=== PATIENT | male | born 1965 | race Caucasian/White ===

== ENCOUNTER 2024-07-17 10:07 | Outpatient (CLI) | payer OTHER, SELFPAY ==
--- NOTE | 2024-07-17 10:13 | US_ITS ---
WS: [id number] TESTICULAR ULTRASOUND HISTORY: OTHER SPECIFIED DISORDER OF MALE GENITAL ORGAN COMPARISON: None available. TECHNIQUE: Real-time and color Doppler imaging or utilized to perform a testicular ultrasound. Right testicle: 3.1 cm x 4.7 cm x 2.2 cm. Normal size testicle. There is diffuse heterogeneity throughout the testicle. There is normal vascula rity. Variable echogenicity in portions of the testicle. Along the posterior testicle there is an are a of decreased echogenicity which could potentially be an infiltrating neoplasm. Normal color Doppler is present throughout. Systolic and diastolic velocities are both present. No significant hydrocele. Right epididymis: Multiple spermatoceles with low-level echoes. Large spermatocele measures 2.7 x 1.8 cm. Left testicle: 3.3 cm x 3.3 cm x 2.5 cm. Normal size testicle with variable echogenicity throughout. Normal vascularity. There is a similar ar ea of decreased echogenicity in the posterior testicle as compared to the RIGHT. Normal color Doppler is present throughout. Systolic and diastolic velocities are both present. Small moderate size complex LEFT hydrocele. Left epididymis: Normal epididymis with no increased vascularity. US/US scrotum [id number] IMPRESSION: 1. Large lobulated RIGHT spermatocele. 2. Moderate complex LEFT hydrocele. 3. Testicles are markedly heterogeneous with areas of decreased echogenicity. This is a symmetric finding therefore this is probably postinflammatory. Consid er short-term follow-up in 3 to 4 months to ensure there is no underlying neopl asm or tumor. 4. No testicular torsion.
== END 2024-07-17 10:08 | disposition home or self-care (01) ==
LOC: RAD 10:11
PROVIDERS: Visit Provider Nurse Practitioner Occupational Health
DX: N43.2 Other hydrocele (principal); Q55.29 Other congenital malformations of testis and scrotum
CPT/HCPCS: 76870

== ENCOUNTER 2024-11-28 18:10 | Emergency (ER) | payer OTHER, SELFPAY ==
[2024-11-28 18:13] VITALS: PULSE 97; RESP 18; TEMP 36.8; O2SAT 97; BMI 25.0
--- NOTE | 2024-11-28 18:20 | ECG_ITS ---
[facility] Date: 2024-11-28 Pat Name: Chadwick Frank Department: Room: Gender: Male Boot Turner: : 1965 Requested By: Zully Lang Order Number: [id number] Craven MD: Shivani Soares M.D. Measurements Intervals [place] Rate: 93 P: 60 WI: 152 QRS: 69 QRSD: 84 T: 51 QT: 335 QTc: 417 Interpretive Statements SINUS RHYTHM No previous ECG available for comparison Electronically Signed On 11-29-2024 18:18:25 HANGER by Shivani Soares M.D. [email or web address]
[2024-11-28 18:25] LABS: Glucose Point of Care 115 mg/dL (70-110)
[2024-11-28 20:10] VITALS: BP 153/86; PULSE 79; RESP 16; O2SAT 98
--- NOTE | 2024-11-28 20:19 | XRR_ITS ---
PROCEDURE INFORMATION: Exam: XR Chest Exam date and time: 11/28/2024 8:49 PM Age: 59 years old Clinical indication: Cough and shortness of breath; Additional info: Cough/syncope TECHNIQUE: Imaging protocol: Radiologic exam of the chest. Views: 1 view. COMPARISON: No relevant prior studies available. FINDINGS: Lungs: Unremarkable. No consolidation. Pleural spaces: Unremarkable. No pleural effusion. No pneumothorax. Heart/Mediastinum: Unremarkable. No cardiomegaly. Bones/joints: Unremarkable. XR/XR chest 1V portable [id number] IMPRESSION: No acute findings.
--- NOTE | 2024-11-28 20:19 | CTR_ITS ---
PROCEDURE INFORMATION: Exam: CT Head Without Contrast Exam date and time: 11/28/2024 8:41 PM Age: 59 years old Clinical indication: Injury or trauma; Fall; Blunt trauma (contusions or hematomas); Additional info: Sycope/ head injury TECHNIQUE: Imaging protocol: Computed tomography of the head without contrast. Radiation optimization: All CT scans at this facility use at least one of these dose optimization techniques: automated exposure control; mA and/or kV adjustment per patient size (includes targeted exams where dose is matched to clinical indication); or iterative reconstruction. COMPARISON: No relevant prior studies available. RADIATION DOSE METRICS: Total DLP (mGy-cm): 1115.48 FINDINGS: Brain: Normal. No hemorrhage. Unremarkable white matter. No mass effect. Cerebral ventricles: No ventriculomegaly. Paranasal sinuses: Visualized sinuses are unremarkable. No fluid levels. Mastoid air cells: Visualized mastoid air cells are well aerated. Bones: Unremarkable. No acute fracture. Soft tissues: Unremarkable. CT/CT head wo con* [id number] IMPRESSION: No acute intracranial abnormality.
--- NOTE | 2024-11-28 20:31 | W.ED.SYNCOPE ---
HPI - Syncope General: Chief Complaint: Syncope Stated Complaint: passed out fall hit head Time Seen by Provider: 11/28/24 20:12 History of Present Illness: 59-year-old male presents following a syncope event. 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 Family reports that he hit his forehead. He denies any pain at this time. He denies any chest pain prior to the syncopal event. He does report that he has had some congestion and cough and just generally not feeling well for the last couple days. Patient denies any pain or symptoms at this time. Associated symptoms: Reports fever(s); Deny abdominal pain, chest pain or nausea Related Data Allergies Allergy/AdvReac Type Severity Reaction Status Date / Time honey Allergy ALGY-Anaphy Verified 11/28/24 18:19 laxis Penicillins Allergy ALGY-Anaphy Verified 11/28/24 18:19 laxis Review of Systems Const: Reports: fever(s), fatigue and malaise Card: Reports: syncope; Denies: chest pain or palpitations Resp: Reports: non-productive cough GI: Denies: abdominal pain, nausea or vomiting : Denies: flank pain or difficulty urinating Musc: Denies: neck pain or back pain Skin/Breast: Denies: rash Physical Exam Const: COMMON NORMALS: no acute distress, average body habitus, patient oriented x3, healthy appearing and alert HENMT: COMMON NORMALS: normocephalic and atraumatic HEAD & SCALP: normal to inspection, normocephalic and atraumatic Neck/C-Spine: COMMON NORMALS: full ROM and supple CERVICAL SPINE: Yes cervical ROM normal, No pain with cervical ROM and No Cervical spine tenderness Resp: COMMON NORMALS: normal respiratory effort, No use of accessory muscles and clear to auscultation bilaterally AUSCULTATION: clear to auscultation bilaterally Cardio: COMMON NORMALS: regular rate and regular rhythm RATE: regular rate RHYTHM: regular rhythm Neuro: COMMON NORMALS: patient oriented x3, CN's II-XII intact bilaterally, moves all extremities, no focal motor deficits and no sensory deficits noted SENSORIUM/ORIENTATION: Yes alert Psych: COMMON NORMALS: mental status grossly normal, Normal thought process present, cooperative, normal affect and speech normal SPEECH: Yes normal speech THOUGHT PROCESS: Normal thought process present Skin: COMMON NORMALS: no rashes or lesions noted and turgor normal GENERAL SKIN EXAM: no rashes or lesions noted and turgor normal Course Vital Signs: Vital signs: Vital Signs Temperature 98.2 F 11/28/24 18:13 Pulse Rate 78 11/28/24 21:00 Respiratory Rate 16 11/28/24 21:00 Blood Pressure 101/46 11/28/24 21:00 Pulse Oximetry 95 11/28/24 21:00 Oxygen Delivery Me thod Room Air 11/28/24 21:00 MDM - Syncope Medical Decision Making Patient diagnostic studies were ordered reviewed and interpreted by me. Patient's labs show no acute findings. Patient is EKG shows sinus rhythm with a ventricular rate 93, [place] [address] change elevation noted. Patient's x-rays were negative along with a negative head CT. Patient's symptoms were consistent with likely vasovagal syncope. Patient also likely has a viral syndrome. Patient's care was turned over to Dr. Aragon at the end of my shift pending respiratory panel. I anticipate discharge home. Lab Data 11/28/24 20:32 11/28/24 20:32 Radiology Impressions Chest X-Ray 11/28/24 20:19 IMPRESSION: No acute findings. Head CT 11/28/24 20:19 IMPRESSION: No acute intracranial abnormality. Laboratory Results WBC 11.30 10^3/uL (3.29-11.43) 11/28/24 20:32 RBC 4.86 10^6/uL (3.85-5.65) 11/28/24 20:32 Hgb 15.20 g/dL (11.27-16.99) 11/28/24 20:32 Hct 46.1 % (37-53) 11/28/24 20:32 MCV 94.9 fl (82-101) 11/28/24 20:32 MCH 31.3 pg (27-33) 11/28/24 20:32 MCHC 33.0 g/dL (30-55) 11/28/24 20:32 RDW 12.4 % (12.1-15.1) 11/28/24 20:32 Plt Count 143 10^3/cmm (157-399) L 11/28/24 20:32 MPV 10.5 fL (7.4-10.4) H 11/28/24 20:32 Neut % (Auto) 79.4 % 11/28/24 20:32 Lymph % (Auto) 14.0 % 11/28/24 20:32 Catron % (Auto) 6.0 % 11/28/24 20:32 Eos % (Auto) 0.0 % 11/28/24 20:32 Baso % (Auto) 0.2 % 11/28/24 20:32 Neut # (Auto) 8.98 10^3/uL (1.8-7.7) H 11/28/24 20:32 Lymph # (Auto) 1.6 10^3/uL (0.8-4.8) 11/28/24 20:32 Catron # (Auto) 0.7 10^3/uL (0.2-0.9) 11/28/24 20:32 Eos # (Auto) 0.0 10^3/uL (0.0-0.8) 11/28/24 20: Baso # (Auto) 0.0 10^3/uL (0.0-0.1) 11/28/24 20:32 Nucleated RBC % (auto) 0 % 11/28/24: Nucleated RBCs # 0.0 /100WBC 11/28/24 20:32 Sodium 134 mmol/L (136-145) L 11/28/24 20:32 Potassium 3.9 mmol/L (3.5-5.1) 11/28/24 20:32 Chloride 97 mmol/L (98-107) L 11/28/24 20:32 Carbon Dioxide 26 mmol/L (22-29) 11/28/24 20:32 Anion Gap 14.9 (5-19) 11/28/24 20:32 BUN 17 mg/dL (8-23) 11/28/24 20:32 Creatinine 1.1 mg/dL (0.7-1.2) 11/28/24 20:32 GFR Calculation 68.3 mL/min (90-130) L 11/28/24 20:32 Glucose 199 mg/dL (65-115) H 11/28/24 20:32 POC Glucose 115 mg/dL (70-110) H 11/28/24 18:23 Calculated Osmolality 285 mOsm/kg (285-295) 11/28/24 20:32 Calcium 8.8 mg/dL (8.5-10.5) 11/28/24 20: Magnesium 2.2 mg/dL (1.7-2.3) 11/28/24 20: Total Bilirubin 0.6 mg/dL (0.15-1.2) 11/28/24 20: AST 58 U/L (0-40) H 11/28/24 20: ALT 70 U/L (0-41) H 11/28/24 20: Alkaline Phosphatase 66 U/L (40-130) 11/28/24 20: Troponin T Baseline 9 ng/L (0-15) 11/28/24 20: Total Protein 6.7 g/dL (6.6-8.7) 11/28/24 20: Albumin 4.2 g/dL (3.5-5.2) 11/28/24 20: Globulin 2.5 g/dL (1.3-4.6) 11/28/24 20: Urine Color Yellow (Yellow) 11/28/24: Urine Appearance Clear (CLEAR) 11/28/24: Urine pH 6.0 (5-7) 11/28/24: Ur Specific [place] 1.022 (1.005-1.030) 11/28/24: Urine Protein 1+ (Negative) A 11/28/24 20: Urine Glucose (UA) Negative (Normal) 11/28/24 20: Urine Ketones Trace (Negative) 11/28/24: Urine Blood Negative (Negative) 11/28/24: Urine Nitrate Negative (Negative) 11/28/24 20: Urine Bilirubin Negative (Negative) 11/28/24: Urine Urobilinogen 1.0 mg/dL (Negative) 11/28/24 20: Ur Leukocyte Esterase Negative (Negative) 11/28/24 20: Urine RBC 3-5 /hpf (0-2) 11/28/24 20: Urine WBC 0-5 /hpf (0-5) 11/28/24 20: Ur Squamous Epith Cells 0-5 /hpf (0-5) 11/28/24 20: Amorphous Sediment Not Reportable 11/28/24 20:32 Urine Bacteria None seen /hpf (NONE) 11/28/24 20:32 Hyaline Casts 1.65 /lpf 11/28/24 20:32 All radiology interpretation(s) finalized by discharge Discharge Plan Discharge Clinical Impression: Vasovagal syncope Condition: Stable Referrals: Ramy Caldwell FNP [Primary Care Provider] - Coding Level of Care Code ED Development Consultant for [facility]
[2024-11-28 20:37] LABS: Basophils % 0.2 %; Hematocrit 46.1 % (37-53); Lymphocytes # 1.6 10^3/uL (0.8-4.8); Mean Corpuscular Hemoglobin 31.3 pg (27-33); Mean Corpuscular Volume 94.9 fl (82-101); Mean Platelet Volume 10.5 fL (7.4-10.4); Monocytes # 0.7 10^3/uL (0.2-0.9); Neutrophils # 8.98 10^3/uL (1.8-7.7); Neutrophils % 79.4 %; Nucleated Red Blood Cells % 0 %; Platelet Count 143 10^3/cmm (157-399); Red Blood Count 4.86 10^6/uL (3.85-5.65); Red Cell Distribution Width 12.4 % (12.1-15.1)
[2024-11-28 20:55] LABS: Troponin(5th) Baseline 9 ng/L (0-15)
[2024-11-28 21:00] VITALS: BP 101/46; PULSE 78; RESP 16; O2SAT 95
[2024-11-28 21:02] LABS: Bilirubin Urine Negative (Negative); Blood Urine Negative (Negative); Glucose Urine UA Negative (Normal); Ketones Urine Trace (Negative); Leukocyte Esterase Urine Negative (Negative); Nitrate Urine Negative (Negative); Protein Urine 1+ (Negative); Specific Gravity, Urine 1.022 (1.005-1.030); Urine Appearance Clear (CLEAR); Urine Color Yellow (Yellow)
[2024-11-28 21:03] LABS: Alanine Aminotransferase 70 U/L (0-41); Albumin Level 4.2 g/dL (3.5-5.2); Alkaline Phosphatase 66 U/L (40-130); Anion Gap 14.9 (5-19); Aspartate Amino Transferase 58 U/L (0-40); Blood Urea Nitrogen 17 mg/dL (8-23); Calcium 8.8 mg/dL (8.5-10.5); Carbon Dioxide 26 mmol/L (22-29); Chloride 97 mmol/L (98-107); Creatinine Clr Calc Pharmacy 80.9354; Globulin 2.5 g/dL (1.3-4.6); Glomerular Filtration Rate 68.3 mL/min (90-130); Glucose 199 mg/dL (65-115); Magnesium 2.2 mg/dL (1.7-2.3); Osmolality Calculated 285 mOsm/kg (285-295); Potassium 3.9 mmol/L (3.5-5.1); Sodium 134 mmol/L (136-145); Total Bilirubin 0.6 mg/dL (0.15-1.2); Total Protein 6.7 g/dL (6.6-8.7)
[2024-11-28 21:07] LABS: Add Urine Microscopic? YES; Bacteria Urine None Seen /hpf; Hyaline Casts Urine 1.65 /lpf; Squamous Epithelial Cell Urine 0-5 /hpf (0-5); WBC Urine 0-5 /hpf (0-5)
[2024-11-28 21:57] VITALS: BP 125/67; PULSE 71; RESP 16; O2SAT 93
[2024-11-28 22:25] LABS: Adenovirus Not Detected (NOT DETECT); Chlamydia Pneumoniae Not Detected (NOT DETECT); Coronavirus 229E,HKU1,NL63,OC4 Not Detected (NOT DETECT); Human Metapneumovirus Not Detected (NOT DETECT); Human Rhinovirus/Enterovirus Not Detected (NOT DETECT); Influenza A Detected (NOT DETECT); Influenza A H1 Not Detected (NOT DETECT); Influenza A H1-2009 Detected (NOT DETECT); Influenza A H3 Not Detected (NOT DETECT); Influenza B Not Detected (NOT DETECT); Mycoplasma Pneumoniae Not Detected (NOT DETECT); Parainfluenza Virus Type 1 Not Detected (NOT DETECT); Parainfluenza Virus Type 2 Not Detected (NOT DETECT); Parainfluenza Virus Type 3 Not Detected (NOT DETECT); Parainfluenza Virus Type 4 Not Detected (NOT DETECT); Respiratory Syncytial Virus A Not Detected (NOT DETECT); Respiratory Syncytial Virus B Not Detected (NOT DETECT); SARS-COV-2 Not Detected (NOT DETECT)
[2024-11-28 22:54] VITALS: BP 96/47; PULSE 71; RESP 18; O2SAT 98
[2024-11-28 23:38] VITALS: BP 126/78; PULSE 73; O2SAT 97
== END 2024-11-28 23:41 | disposition home or self-care (01) ==
PROVIDERS: Student in an Organized Health Care Education/Training Program; Emergency Provider Emergency Medicine; PCP Nurse Practitioner Occupational Health
DX: R55 Syncope and collapse (principal)
CPT/HCPCS: 36415; 36416; 70450; 71045; 80053; 81001; 82962; 83735; 84484; 85025; 87486; 87581; 87633; 93005; 99285